=== PATIENT | female | born 1960 | race Caucasian/White ===

== ENCOUNTER → 2021-04-08 | Outpatient (CLI) | payer OTHER ==
[~2021-04-08] MED LIST: CELEXA 10 MG TA10 MG PO; DIABETA PO; MEVACOR40 MG PO; NORCO 5-325 TA1 EACH PO; PENICILLIN VK500 MG PO; REMERON15 MG PO; TRILIPIX45 MG PO; ZOFRAN 4 MG ORAL4 MG PO
== END ==
LOC: M.ULTRA 08:11
PROVIDERS: ATTEND Family Medicine
DX: K76.0 Fatty (change of) liver, not elsewhere classified (principal)